=== PATIENT | male | born 1955 | race Caucasian/White ===

== ENCOUNTER → 2018-08-11 | Outpatient (CLI) | payer MEDICARE ==
[~2018-08-11] MED LIST: ASPIRIN 81M81 MG/TA2 PO; ASPIRIN E.C. 8181 MG PO; ATIVAN; ATIVAN 0.50.5 MG/TAB PO; BRILINTA90 MG PO; CEPHALEXIN500 M1 PO; CORDARONE200 MG/TAB PO; COUMADIN 5MG5 MG/TAB PO; CRESTOR40 MG PO; DESYREL 100MG100 MG PO; DESYREL DIVIDO300 MG PO; ELIQUIS 5MG PO; FLEXERIL5 MG PO; GABAPENTIN; LIPITOR 10MG10 MG PO; LIPITOR 40MG TA40 MG PO; LOPRESSOR 550 MG/TAB PO; MULTAQ400 MG PO; NEURONTIN300 MG/CAP PO; NITRO-DUR0.4 MG/PAT TD; NORCO 325 MG-51 TAB PO; NORVASC 5MG5 MG/TAB PO; PAXIL 30MG30 MG PO; PAXIL PO; PLAVIX 75MG TAB75 MG PO; XARELTO20 MG PO; ZESTRIL 5MG5 MG PO
== END ==
LOC: COL.RAD 07:29
DX: I65.21 Occlusion and stenosis of right carotid artery (principal); I67.2 Cerebral atherosclerosis; I66.9 Occlusion and stenosis of unspecified cerebral artery; Z82.49 Family history of ischemic heart disease and other diseases of the circulatory system
CPT/HCPCS: Q9967

== ENCOUNTER → 2019-01-10 | Outpatient (CLI) | payer MEDICARE, OTHER | LOC: COL.RAD 08:00 | DX: M16.11 Unilateral primary osteoarthritis, right hip (principal) | CPT/HCPCS: J3301; Q9967 ==

== ENCOUNTER 2019-02-19 06:59 | Outpatient (CLI) | payer MEDICARE, OTHER ==
[~2019-02-19] VITALS: Ht 177.8 cm; Wt 89.0 kg
[2019-02-19 07:27] VITALS: BP 142/74; PULSE 66
[2019-02-19 08:47] VITALS: BP 129/68; PULSE 63
--- NOTE | 2019-02-19 08:47 | NUR ---
PT TO RM 9 POST MYELOGRAM. SITE C/D/I AND VSS. PT RESTING COMFORTABLY IN BED AT THIS TIME.
[2019-02-19 08:52] VITALS: BP 129/69; PULSE 62
[2019-02-19 09:10] VITALS: BP 124/58; PULSE 63
[2019-02-19 09:25] VITALS: BP 123/62; PULSE 65
[2019-02-19 09:40] VITALS: BP 132/65; PULSE 66
--- NOTE | 2019-02-19 10:05 | NUR ---
PT VSS AND [id number] POST MYELOGRAM. SITE UNCHANGED. PT TOLERATING FLUID PO WITHOUT ISSUE. DISCHARGE INSTRUCTIONS REVIEWED AND SIGNED. PT WHEELED SAFELY OUT WITH PRESENT CAREER DEVELOPER.
== END 2019-02-19 10:00 | disposition home or self-care (01) ==
LOC: COL.RAD 06:59
DX: M48.061 Spinal stenosis, lumbar region without neurogenic claudication (principal); M47.817 Spondylosis without myelopathy or radiculopathy, lumbosacral region; M89.38 Hypertrophy of bone, other site
CPT/HCPCS: Q9965